=== PATIENT | female | born 1990 | race Caucasian/White ===

== ENCOUNTER 2018-05-15 09:02 | Inpatient (IN) ==
[2018-05-15] MEDS ORDERED: fentaNYL Citrate Inj 100 MCG/2 ML Ampul IV.PUSH PRN ×2 (09:50)
[2018-05-15] MEDS ORDERED: Sod Chloride 0.9% Inj 1,000 ML IV.CONT PRN (09:50)
[2018-05-15] MEDS ORDERED: Sodium Chlor 0.9% Inj 500 ML IV.SIG PRN (09:50)
[2018-05-15] MEDS ORDERED: Oxytocin 30 Units/500ml Premix 30 UNITS/500 ML BAG IV.SIG ONE (09:50)
[2018-05-15] MEDS ORDERED: Naloxone Inj 0.4 MG/ML Vial IV.PUSH PRN ×2 (09:50→20:59)
[2018-05-15] MEDS ORDERED: Penicillin G Potassium Inj 5,000,000 UNIT in Sodium Chloride 0.9% Inj 100 ML IV.SIG ONE (10:00)
[2018-05-15] MEDS ORDERED: Citric Acid/Sodium Citrate Liq 30 ML UDC PO SCH (10:00)
--- NOTE | 2018-05-15 10:24 | ED ---
History of Present Illness Chief Complaint: Fluid leakage History of Present Illness: Patient is a 27 year old at 39 weeks and 2 days who presents to OB triage for evaluation of fluid leakage. Around 2 a.m. she woke up feeling "wet." Her pants were drenched. She went to the bathroom and continued experiencing fluid leakage. The leakage continues at presentation. She denies vaginal bleeding. She is experiencing mild, irregular contractions. She endorses positive movement. G1: male, delivered at 36 weeks, 7 lbs 4 ounces; no complications G2: current ; GBS positive; no complications Weeks Gestation:: 39 Para: 1 : 2 Review of Systems All other systems reviewed negative except as stated in HPI PMFSH - History History Provided By: Patient - Medical / Surgical Hx Neg / Unobtainable Medical Problems Denied: Yes Surgical History: No Previous Surgery - Social History I have reviewed the patient's Social History: Yes - Tobacco History Smoking Status: Never smoker - Travel History Recent Travel in the [facility] Within the Last 8 Weeks: No Recent Travel Out of the Country Within the Last 8 Weeks: No Medications and Allergies Active Medications: Active Medications Citric Acid/Sodium Citrate (Sodium Citrate/Citric Acid Liq) 30 ml PO [facility] Stop: 05/19/18 09:59 Fentanyl Citrate (Fentanyl Inj) 50 mcg IV.PUSH Q1H PRN PRN Reason: Pain Scale 3 - 5 Fentanyl Citrate (Fentanyl Inj) 100 mcg IV.PUSH Q1H PRN PRN Reason: PAIN SCALE 6 TO 10 Lactated Ringer's (Lr 1000 Ml Inj) 1,000 mls @ 125 mls/hr IV.CONT .Q8H [facility] Lactated Ringer's (Lr 1000 Ml Inj) 1,000 mls @ 3,000 mls/hr IV.SIG UNSCH PRN PRN Reason: compromise or epidural Sodium Chloride (Ns Inj) 500 mls @ 1,000 mls/hr IV.SIG UNSCH PRN PRN Reason: SEE LABEL COMMENTS Sodium Chloride (Ns Inj) 1,000 mls @ 100 mls/hr IV.CONT .Q10H PRN PRN Reason: SEE LABEL COMMENTS Oxytocin (Pitocin 30 Units/Ns 500 Ml Premix) 30 units in 500 mls @ 999 mls/hr IV.SIG BOLUS ONE Stop: 05/15/18 10:20 Penicillin G Potassium 5,000, (000 unit/ Sodium Chloride) 100 mls @ 200 mls/hr IV.SIG ONCE ONE Stop: 05/15/18 10:19 Penicillin G Potassium 2,500, (000 unit/ Sodium Chloride) 100 mls @ 200 mls/hr IV.SIG Q4H EMELYN Lidocaine HCl (Xylocaine 1% Inj) 0.1 ml I-DERMAL PRN PRN PRN Reason: For IV start Stop: 05/18/18 09:49 Lidocaine HCl (Xylocaine 1% Inj) 10 ml INFILTRATN PRN PRN PRN Reason: For episiotomy repair Stop: 05/17/18 09:49 Mineral Oil (Muri-Lube Oil) 10 ml TOPICAL PRN PRN PRN Reason: PRN perineal massage Naloxone HCl (Narcan Inj) 0.1 mg IV.PUSH Q2M PRN PRN Reason: for opiate reversal Ondansetron HCl (Zofran Inj) 4 mg IV.PUSH Q6H PRN PRN Reason: NAUSEA OR VOMITING Allergies Allergy/AdvReac Type Severity Reaction Status Date / Time No Known Allergies Allergy Verified 05/15/18 09:18 Home Medications Medication Instructions Recorded Confirmed Type vit,[id number] 1 tab PO DAILY 05/15/18 05/15/18 History [PNV 29-1] Exam Vital signs: Vital Signs 05/15/18 09:22 Temperature 98.1 F Pulse Rate 101 H Respiratory Rate 18 Blood Pressure 127/80 Intake & Output 05/14/18 05/15/18 05/15/18 18:59 06:59 18:59 Weight 87.997 kg Narrative: GENERAL: Well-nourished, well-developed patient. SKIN: Warm and dry. HEAD: Normocephalic and atraumatic. EYES: No scleral icterus. No injection or drainage. ENT: No nasal drainage noted. Mucous membranes pink. Airway patent. NECK: Supple, trachea midline. No JVD. CARDIOVASCULAR: Regular rate and rhythm without murmurs, gallops, or rubs. RESPIRATORY: Breath sounds equal bilaterally. No accessory muscle use. BREASTS: Bilateral exam showed no masses , no retractions, no nipple discharge. ABDOMEN/GI: Abdomen soft, non-tender, bowel sounds present, no rebound, no guarding Gravid to 39 weeks size GENITOURINARY: External Genitalia: intact and normal in appearance Dilatation: 4 cm Effacement: 50% Station: -3 Membranes: ruptured Uterine Contractions: none FHT's: Category: 1 Baseline: 150 Reactive: + Variability: moderate Decels: none EXTREMITIES: No cyanosis or edema. BACK: Nontender without obvious deformity. No CVA tenderness. NEUROLOGICAL: Awake and alert. Motor and sensory grossly within normal limits. Five out of 5 muscle strength in all muscle groups. Normal speech. Results - Labs Group B Strep: Positive Assessment and Plan - Diagnosis (1) 39 weeks gestation of Code(s): Z3A.39 - 39 weeks gestation of Status: Acute (2) Spontaneous rupture of membranes Status: Acute - Plan Patient is a 27 year old at 39 weeks and 2 days who presents to OB triage for evaluation of fluid leakage. Amnisure positive. Admit to labor and delivery. Routine labor and delivery orders placed. Patient GBS positive; penicillin G started. Patient without contractions; consider Pitocin. dw OB hospitalist. Discharge Plan - Discharge Condition Condition: Stable - Physicians Team Primary Care Provider: Primary Polly Pruett Attending Provider: David Kohler - Rxs /Orders / Referrals /Forms Prescriptions: No Action vit,[id number] [PNV 29-1] 29 mg iron- 1 mg Tablet 1 tab PO DAILY Referrals: Primary Care Polly Gililam [Primary Care Provider] - See Instructions
--- NOTE | 2018-05-15 10:27 | P.HPOB ---
History of Present Illness Chief Complaint: Fluid leakage History of Present Illness: Patient is a 27 year old at 39 weeks and 2 days who presents to OB triage for evaluation of fluid leakage. Around 2 a.m. she woke up feeling "wet." Her pants were drenched. She went to the bathroom and continued experiencing fluid leakage. The leakage continues at presentation. She denies vaginal bleeding. She is experiencing mild, irregular contractions. She endorses positive movement. G1: male, delivered at 36 weeks, 7 lbs 4 ounces; no complications G2: current ; GBS positive; no complications Weeks Gestation:: 39 Para: 1 : 2 Review of Systems All other systems reviewed negative except as stated in HPI PMFSH - History History Provided By: Patient - Medical / Surgical Hx Neg / Unobtainable Medical Problems Denied: Yes Surgical History: No Previous Surgery - Social History I have reviewed the patient's Social History: Yes - Tobacco History Smoking Status: Never smoker - Travel History Recent Travel in the [facility] Within the Last 8 Weeks: No Recent Travel Out of the Country Within the Last 8 Weeks: No Medications and Allergies Active Medications: Active Medications Citric Acid/Sodium Citrate (Sodium Citrate/Citric Acid Liq) 30 ml PO [facility] Stop: 05/19/18 09:59 Fentanyl Citrate (Fentanyl Inj) 50 mcg IV.PUSH Q1H PRN PRN Reason: Pain Scale 3 - 5 Fentanyl Citrate (Fentanyl Inj) 100 mcg IV.PUSH Q1H PRN PRN Reason: PAIN SCALE 6 TO 10 Lactated Ringer's (Lr 1000 Ml Inj) 1,000 mls @ 125 mls/hr IV.CONT .Q8H [facility] Lactated Ringer's (Lr 1000 Ml Inj) 1,000 mls @ 3,000 mls/hr IV.SIG UNSCH PRN PRN Reason: compromise or epidural Sodium Chloride (Ns Inj) 500 mls @ 1,000 mls/hr IV.SIG UNSCH PRN PRN Reason: SEE LABEL COMMENTS Sodium Chloride (Ns Inj) 1,000 mls @ 100 mls/hr IV.CONT .Q10H PRN PRN Reason: SEE LABEL COMMENTS Oxytocin (Pitocin 30 Units/Ns 500 Ml Premix) 30 units in 500 mls @ 999 mls/hr IV.SIG BOLUS ONE Stop: 05/15/18 10:20 Penicillin G Potassium 5,000, (000 unit/ Sodium Chloride) 100 mls @ 200 mls/hr IV.SIG ONCE ONE Stop: 05/15/18 10:19 Penicillin G Potassium 2,500, (000 unit/ Sodium Chloride) 100 mls @ 200 mls/hr IV.SIG Q4H EM[facility] Lidocaine HCl (Xylocaine 1% Inj) 0.1 ml I-DERMAL PRN PRN PRN Reason: For IV start Stop: 05/18/18 09:49 Lidocaine HCl (Xylocaine 1% Inj) 10 ml INFILTRATN PRN PRN PRN Reason: For episiotomy repair Stop: 05/17/18 09:49 Mineral Oil (Muri-Lube Oil) 10 ml TOPICAL PRN PRN PRN Reason: PRN perineal massage Naloxone HCl (Narcan Inj) 0.1 mg IV.PUSH Q2M PRN PRN Reason: for opiate reversal Ondansetron HCl (Zofran Inj) 4 mg IV.PUSH Q6H PRN PRN Reason: NAUSEA OR VOMITING Allergies Allergy/AdvReac Type Severity Reaction Status Date / Time No Known Allergies Allergy Verified 05/15/18 09:18 Home Medications Medication Instructions Recorded Confirmed Type vit,[id number] 1 tab PO DAILY 05/15/18 05/15/18 History [PNV 29-1] Exam Vital signs: Vital Signs 05/15/18 09:22 Temperature 98.1 F Pulse Rate 101 H Respiratory Rate 18 Blood Pressure 127/80 Intake & Output 05/14/18 05/15/18 05/15/18 18:59 06:59 18:59 Weight 87.997 kg Narrative: GENERAL: Well-nourished, well-developed patient. SKIN: Warm and dry. HEAD: Normocephalic and atraumatic. EYES: No scleral icterus. No injection or drainage. ENT: No nasal drainage noted. Mucous membranes pink. Airway patent. NECK: Supple, trachea midline. No JVD. CARDIOVASCULAR: Regular rate and rhythm without murmurs, gallops, or rubs. RESPIRATORY: Breath sounds equal bilaterally. No accessory muscle use. BREASTS: Bilateral exam showed no masses , no retractions, no nipple discharge. ABDOMEN/GI: Abdomen soft, non-tender, bowel sounds present, no rebound, no guarding Gravid to 39 weeks size GENITOURINARY: External Genitalia: intact and normal in appearance Dilatation: 4 cm Effacement: 50% Station: -3 Membranes: ruptured Uterine Contractions: none FHT's: Category: 1 Baseline: 150 Reactive: + Variability: moderate Decels: none EXTREMITIES: No cyanosis or edema. BACK: Nontender without obvious deformity. No CVA tenderness. NEUROLOGICAL: Awake and alert. Motor and sensory grossly within normal limits. Five out of 5 muscle strength in all muscle groups. Normal speech. Results - Labs Group B Strep: Positive Assessment and Plan - Diagnosis (1) 39 weeks gestation of Code(s): Z3A.39 - 39 weeks gestation of Status: Acute (2) Spontaneous rupture of membranes Status: Acute - Plan Patient is a 27 year old at 39 weeks and 2 days who presents to OB triage for evaluation of fluid leakage. Amnisure positive. Admit to labor and delivery. Routine labor and delivery orders placed. Patient GBS positive; penicillin G started. Patient without contractions; consider Pitocin. pam OB hospitalist.
--- NOTE | 2018-05-15 10:36 | P.PN ---
Subjective Interval history: OBHG Attending The patient was seen and examined. Discussed risks of , risks and indications for delivery. Discussed risks of delivery if indicated that include but are not limited to pain, infection, bleeding, injury to other organs like bladder/bowels/nerves/vessels, injury to the baby, need for a repeat operation, need for a hysterectomy, need for a blood transfusion, wound infection or breakdown, and other possible risks. Discussed goal of with benefits of that include an easier transition for the baby and easier recovery for her. All of her questions were answered. FHR reassuring with baseline 130s and category 1 tracing. Physical Exam Vital signs: Vital Signs 05/15/18 09:22 Temperature 98.1 F Pulse Rate 101 H Respiratory Rate 18 Blood Pressure 127/80 Intake & Output 05/14/18 05/15/18 05/15/18 18:59 06:59 18:59 Weight 87.997 kg Results - Labs CBC & Chem 7: 05/15/18 10:10
[2018-05-15 10:45] LABS: Baso # (Auto) 0.1 th/mm3 (0.0-0.2); Baso % (Auto) 0.6 % (0.0-2.0); Eos % (Auto) 0.5 % (0.0-4.0); Hematocrit 34.4 % (35.0-46.0); Hemoglobin 11.6 gm/dL (11.6-15.3); Lymph # (Auto) 1.4 th/mm3 (1.0-4.8); Lymph % (Auto) 14.8 % (9.0-44.0); Mean Corpuscular HGB Conc 33.6 % (32.0-36.0); Mean Corpuscular Hemoglobin 28.5 pg (27.0-34.0); Mean Corpuscular Volume 84.8 fL (80.0-100.0); Mono # (Auto) 0.4 th/mm3 (0.0-0.9); Mono % (Auto) 4.3 % (0.0-8.0); Neut # (Auto) 7.4 th/mm3 (1.8-7.7); Neut % (Auto) 79.8 % (16.0-70.0); Platelet Count 255 th/mm3 (150-450); Red Blood Count 4.06 mil/mm3 (4.00-5.30); Red Cell Distribution Width 14.9 % (11.6-17.2); White Blood Count 9.3 th/mm3 (4.0-11.0)
[2018-05-15 11:05] LABS: Bacteria,Urine Occasional /hpf; Bilirubin,Urine Negative (Negative); Clarity,Urine Clear (Clear); Color,Urine Yellow (Yellw/Straw); Glucose,Urine (UA) Negative (Negative); Leukocyte Esterase,Urine Small (Negative); Nitrite,Urine Negative (Negative); Specific Gravity,Urine 1.011 (1.002-1.035); Squamous Epithelial Cell,Urine 5 /hpf (0-5)
[2018-05-15 11:07] LABS: Amphetamine Urine With Conf Neg (Neg); Benzodiazepine Urine With Conf Neg (Neg); Cocaine Urine With Conf Neg (Neg); Opiates Urine With Conf Neg (Neg)
[2018-05-15 11:18] LABS: Cannabinoid Urine With Conf Pos (Neg)
[2018-05-15] MEDS ORDERED: Oxytocin 30 Units/500ml Premix 30 UNITS/500 ML BAG IV.SIG PRN (12:30)
[2018-05-15] MEDS: Penicillin G Potassium Inj 2,500,000 UNIT in Sodium Chlor 0.9% Inj 100 ML IV.SIG SCH ×2 (14:17→18:20)
--- NOTE | 2018-05-15 14:57 | P.OBLABOR ---
Subjective Interval history: Patient is a 27 year old at 39 weeks and 2 days admitted to labor and delivery following SROM (2 a.m.). Patient resting comfortably. GENERAL: Well-nourished, well-developed patient. SKIN: Warm and dry. ENT: No nasal drainage noted. Mucous membranes pink. Airway patent. ABDOMEN/GI: Abdomen soft, non-tender, bowel sounds present, no rebound, no guarding. Gravid to 39 weeks size. GENITOURINARY: External Genitalia: intact and normal in appearance. Dilatation: 4 cm Effacement: 50% Station: -3 Membranes: ruptured Uterine Contractions: q2-3min. FHT's: Category: 1 Baseline: 140 Reactive: + Variability: moderate Decels: none EXTREMITIES: No cyanosis or edema. BACK: Nontender without obvious deformity. No CVA tenderness. NEUROLOGICAL: Awake and alert. Motor and sensory grossly within normal limits. Five out of 5 muscle strength in all muscle groups. Normal speech. Continue routine labor and delivery care. Patient GBS positive - Penicillin G. Pitocin 08/04/29. Recheck in 1 hour, if no cervical change, consider IUPC placement. pam OB hospitalist. Objective Vital Signs: Vital Signs - 8 hr 05/15/18 09:22 05/15/18 10:39 05/15/18 10:40 Temperature 98.1 F Pulse Rate 101 H 90 Respiratory Rate 18 18 Blood Pressure 127/80 117/81 05/15/18 11:27 05/15/18 11:28 05/15/18 12:39 Temperature 98.7 F Pulse Rate 79 91 H Respiratory Rate 18 18 Blood Pressure 111/58 L 132/72 05/15/18 13:09 05/15/18 13:10 05/15/18 14:10 Temperature 98.4 F Pulse Rate 88 84 Respiratory Rate Blood Pressure 124/68 128/65 05/15/18 14:14 05/15/18 14:53 Temperature Pulse Rate 84 Respiratory Rate 18 18 Blood Pressure 119/71 Objective: Pelvic Exam: Cervix: [-] Dilatation: [-] Effacement: [-] Station: [-] Presentation: [-] Membranes: [intact or ruptured] Uterine Contractions: [-] FHT's: Category: [-] Baseline: [-] Reactive: [-] Variability: [-] Decels: [-] Assessment and Plan - Diagnosis (1) 39 weeks gestation of Code(s): Z3A.39 - 39 weeks gestation of Status: Acute (2) Spontaneous rupture of membranes Status: Acute - Plan Patient is a 27 year old at 39 weeks and 2 days who presents to OB triage for evaluation of fluid leakage. Amnisure positive. Admit to labor and delivery. Routine labor and delivery orders placed. Patient GBS positive; penicillin G started. Patient without contractions; consider Pitocin. pam OB hospitalist.
[2018-05-15] MEDS ORDERED: Lidocaine PF 1% Inj 5 ML Vial ONE (18:47)
[2018-05-15] MEDS ORDERED: Lidocaaine 1.5%/Epinephrine 1:200,000 PF Inj 5 ML Amp ONE (18:47)
[2018-05-15] MEDS ORDERED: fentaNYL 2MCG-Bupiv 0.125% Epi 150 ML EPIDURAL ONE (19:00)
--- NOTE | 2018-05-15 20:23 | P.PN ---
Subjective Interval history: Delivery Note The patient rapidly progressed from 4 to 8 cm dilation upon entering active labor and subsequently to completely dilated. The patient commenced spontaneous maternal expulsive efforts with appropriate descent with overall reassuring heart tones throughout. The head delivered atraumatically and spontaneously followed by atraumatic and spontaneous delivery of the anterior shoulder and remainder of . The was placed on the maternal abdomen and was vigorous. The cord was noted to be shorter than expected. The cord was doubly clamped and cut after a >45 second delay. Cord blood was obtained for the nursery and the placenta delivered spontaneously. The placenta appeared intact. No lacerations were noted. EBL 200 cc. Apgars 9/9. weight 4335 g, 9#9oz. Mother and are both doing well. Physical Exam Vital signs: Vital Signs 05/15/18 09:22 05/15/18 10:39 05/15/18 10:40 Temperature 98.1 F Pulse Rate 101 H 90 Respiratory Rate 18 18 Blood Pressure 127/80 117/81 05/15/18 11:27 05/15/18 11:28 05/15/18 12:39 Temperature 98.7 F Pulse Rate 79 91 H Respiratory Rate 18 18 Blood Pressure 111/58 L 132/72 05/15/18 13:09 05/15/18 13:10 05/15/18 14:10 Temperature 98.4 F Pulse Rate 88 84 Respiratory Rate Blood Pressure 124/68 128/65 05/15/18 14:14 05/15/18 14:53 05/15/18 15:00 Temperature 98.0 F Pulse Rate 84 Respiratory Rate 18 18 Blood Pressure 119/71 05/15/18 15:56 05/15/18 15:57 05/15/18 16:46 Temperature Pulse Rate 92 H 89 Respiratory Rate 18 18 Blood Pressure 124/72 113/68 05/15/18 16:48 05/15/18 17:08 05/15/18 17:42 Temperature 98.1 F Pulse Rate 83 86 Respiratory Rate 18 Blood Pressure 128/68 111/66 05/15/18 18:19 05/15/18 18:21 05/15/18 18:46 Temperature 98.0 F Pulse Rate 81 Respiratory Rate 18 Blood Pressure 103/60 05/15/18 18:55 05/15/18 19:06 05/15/18 19:10 Temperature Pulse Rate 103 H 101 H 90 Respiratory Rate 18 Blood Pressure 122/69 116/74 103/51 L 05/15/18 19:17 05/15/18 19:26 05/15/18 19:36 Temperature Pulse Rate 93 H 99 H 84 Respiratory Rate 18 18 Blood Pressure 124/71 119/103 H 125/47 L 05/15/18 19:40 05/15/18 19:50 05/15/18 19:59 Temperature Pulse Rate 94 H 89 Respiratory Rate 18 Blood Pressure 122/67 Intake & Output 05/15/18 05/15/18 05/16/18 06:59 18:59 06:59 Intake Total 100 / 100 Balance 100 / 100 Weight 87.997 kg Intake: IV 100 / 100 Pfizerpen-G Inj 2,500,000 UNIT 100 / 100 In NS Inj 100 ML @ 200 mls/hr IV.SIG Q4H [facility] Rx#:[id number] Results - Labs CBC & Chem 7: 05/15/18 10:10 Laboratory Results - last 24 hr 05/15/18 05/15/18 05/15/18 09:30 09:30 10:10 WBC 9.3 RBC 4.06 Hgb 11.6 Hct 34.4 L MCV 84.8 MCH 28.5 MCHC 33.6 RDW 14.9 Plt Count 255 MPV 7.0 Neut % (Auto) 79.8 H Lymph % (Auto) 14.8 Sanders % (Auto) 4.3 Eos % (Auto) 0.5 Baso % (Auto) 0.6 Neut # (Auto) 7.4 Lymph # (Auto) 1.4 Sanders # (Auto) 0.4 Eos # (Auto) 0.0 Baso # (Auto) 0.1 WBC Differential . Differential Comment Auto diff final Urine Color Yellow Urine Clarity Clear Urine pH 7.0 Ur Specific Grace 1.011 Urine Protein Negative Urine Glucose (UA) Negative Urine Ketones Negative Urine Occult Blood Negative Urine Nitrate Negative Urine Bilirubin Negative Urine Urobilinogen Less than 2 Ur Leukocyte Esterase Small H Urine RBC 1 Urine WBC 17 H Ur Squamous Epith Cells 5 Urine Bacteria Occasional H Micro UA Comment Culture indicated Ur Microscopic Review Not Reportable Urine Culture Comments Culture indicated Urine Opiates Screen Neg Ur Barbiturates Screen Neg Ur Amphetamine Screen Neg U Benzodiazepines Scrn Neg Urine Cocaine Screen Neg U Cannabinoids Screen Pos H Blood Type Blood Type Recheck 05/15/18 10:10 WBC RBC Hgb Hct MCV MCH MCHC RDW Plt Count MPV Neut % (Auto) Lymph % (Auto) Sanders % (Auto) Eos % (Auto) Baso % (Auto) Neut # (Auto) Lymph # (Auto) Sanders # (Auto) Eos # (Auto) Baso # (Auto) WBC Differential Differential Comment Urine Color Urine Clarity Urine pH Ur Specific Grace Urine Protein Urine Glucose (UA) Urine Ketones Urine Occult Blood Urine Nitrate Urine Bilirubin Urine Urobilinogen Ur Leukocyte Esterase Urine RBC Urine WBC Ur Squamous Epith Cells Urine Bacteria Micro UA Comment Ur Microscopic Review Urine Culture Comments Urine Opiates Screen Ur Barbiturates Screen Ur Amphetamine Screen U Benzodiazepines Scrn Urine Cocaine Screen U Cannabinoids Screen Blood Type O Positive Blood Type Recheck Required
[2018-05-15] MEDS ORDERED: Benzocaine 20% Top Spray 60 ML Can TOPICAL PRN (20:59)
[2018-05-15] MEDS ORDERED: Witch Hazel 50%/Glyderin 12.5% 40 Pad Jar RECTAL PRN (20:59)
[2018-05-15] MEDS ORDERED: Oxytocin 30 Units/500ml Premix 30 UNITS/500 ML BAG IV.CONT PRN (20:59)
[2018-05-15] MEDS ORDERED: Bisacodyl 10 MG Supp RECTAL PRN (20:59)
[2018-05-15] MEDS ORDERED: Zolpidem Tartrate 5 MG Tablet PO PRN (20:59)
[2018-05-15] MEDS ORDERED: Acetaminophen 325 MG Tablet PO PRN (20:59)
--- NOTE | 2018-05-15 21:01 | P.OBDELI ---
Weeks Gestation: 39 Anesthesia: Epidural Episiotomy: none Vaginal Delivery: Normal Presentation: Occiput anterior Nuchal Cord: None, Other (Short cord) Delayed Cord Clamping (45 sec): Yes Placenta: Spontaneous delivery Laceration: None Estimated blood loss (mL): 200 Infant: Male (Apgars 9/9, Weight 4335g, 9#9 oz.)
[2018-05-16] MEDS: Senna/Docusate Sodium 8.6/50 MG Tablet PO SCH ×2 (03:47→08:40)
--- NOTE | 2018-05-16 08:32 | P.PNOB ---
Subjective Post day: 1 Interval history: day # 1. AFVSS overnight. Patient complains of some abdominal cramping and soreness, but has not gotten any pain medication yet. Discussed with the patient that Tylenol and Motrin available to her PRN for pain. Decreased lochia. Denies dysuria. No breast tenderness. She is feeding the baby via breast. Appetite good. No nausea or vomiting. Passing flatus. No bowel movements. Ambulating well. Denies calf pain, shortness of breath, or cough. Otherwise, she is doing well this morning and has no other complaints. Objective Vital Signs/I&O: Vital Signs 05/15/18 09:22 05/15/18 10:39 05/15/18 10:40 Temperature 98.1 F Pulse Rate 101 H 90 Respiratory Rate 18 18 Blood Pressure 127/80 117/81 05/15/18 11:27 05/15/18 11:28 05/15/18 12:39 Temperature 98.7 F Pulse Rate 79 91 H Respiratory Rate 18 18 Blood Pressure 111/58 L 132/72 05/15/18 13:09 05/15/18 13:10 05/15/18 14:10 Temperature 98.4 F Pulse Rate 88 84 Respiratory Rate Blood Pressure 124/68 128/65 05/15/18 14:14 05/15/18 14:53 05/15/18 15:00 Temperature 98.0 F Pulse Rate 84 Respiratory Rate 18 18 Blood Pressure 119/71 05/15/18 15:56 05/15/18 15:57 05/15/18 16:46 Temperature Pulse Rate 92 H 89 Respiratory Rate 18 18 Blood Pressure 124/72 113/68 05/15/18 16:48 05/15/18 17:08 05/15/18 17:42 Temperature 98.1 F Pulse Rate 83 86 Respiratory Rate 18 Blood Pressure 128/68 111/66 05/15/18 18:19 05/15/18 18:21 05/15/18 18:46 Temperature 98.0 F Pulse Rate 81 Respiratory Rate 18 Blood Pressure 103/60 05/15/18 18:55 05/15/18 19:06 05/15/18 19:10 Temperature Pulse Rate 103 H 101 H 90 Respiratory Rate 18 Blood Pressure 122/69 116/74 103/51 L 05/15/18 19:17 05/15/18 19:26 05/15/18 19:36 Temperature Pulse Rate 93 H 99 H 84 Respiratory Rate 18 18 Blood Pressure 124/71 119/103 H 125/47 L 05/15/18 19:40 05/15/18 19:50 05/15/18 19:59 Temperature Pulse Rate 94 H 89 Respiratory Rate 18 Blood Pressure 122/67 05/15/18 20:10 05/15/18 20:20 05/15/18 20:21 Temperature 98.2 F Pulse Rate 76 Respiratory Rate 18 18 Blood Pressure 93/62 L 05/15/18 20:45 05/15/18 20:55 05/15/18 20:58 Temperature 98.3 F Pulse Rate 80 Respiratory Rate 18 18 18 Blood Pressure 121/72 05/15/18 20:59 05/15/18 21:15 05/15/18 22:00 Temperature 98.5 F Pulse Rate 78 76 85 Respiratory Rate 18 18 Blood Pressure 102/49 L 114/60 110/61 05/15/18 23:00 05/16/18 08:00 Temperature 98.0 F 98.6 F Pulse Rate 79 89 Respiratory Rate 18 20 Blood Pressure 116/74 111/69 Intake & Output 05/15/18 05/16/18 05/16/18 18:59 06:59 18:59 Intake Total 100 / 100 Balance 100 / 100 Weight 87.997 kg Intake: IV 100 / 100 Pfizerpen-G Inj 2,500,000 UNIT 100 / 100 In NS Inj 100 ML @ 200 mls/hr IV.SIG Q4H [facility] Rx#:[id number] Result Diagrams: 05/15/18 10:10 Objective Remarks: GENERAL: Well-nourished, well-developed patient. CARDIOVASCULAR: Regular rate and rhythm without murmurs, gallops, or rubs. RESPIRATORY: Breath sounds equal bilaterally. No accessory muscle use. ABDOMEN/GI: Abdomen soft, non-tender. Fundus: Firm, non-tender at umbilicus. GENITOURINARY: Light to moderate bleeding. EXTREMITIES: No cyanosis or edema, non-tender, without signs of DVT. Medications and IVs: Active Medications Acetaminophen (Tylenol) 650 mg PO Q4H PRN PRN Reason: PAIN SCALE 1 TO 2 Al Hydroxide/Mg Hydroxide (Milk Of Magnesia Liq) 30 ml PO Q12H PRN PRN Reason: Mild Constipation Benzocaine (Americaine 20% [place]) 1 spray TOPICAL Q4H PRN PRN Reason: For Perineum Discomfort Last Admin: 05/16/18 03:48 Dose: 1 spray Bisacodyl (Dulcolax Supp) 10 mg RECTAL DAILY PRN PRN Reason: SEVERE CONSITIPATION Diphtheria/Pertussis/Tetanus Vacc (Boostrix Vaccine Inj) 0.5 ml IM .ONCE ONE Stop: 05/16/18 16:01 Oxytocin (Pitocin 30 Units/Ns 500 Ml Premix) 30 units in 500 mls @ 100 mls/hr IV.CONT UNSCH PRN PRN Reason: Heavy bleeding Ibuprofen (Motrin) 800 mg PO Q8H PRN PRN Reason: For Cramping Lactulose (Lactulose Liq) 30 ml PO DAILY PRN PRN Reason: SEVERE CONSITIPATION Measles/Mumps/Rubella Vaccine Live (M-M-R Ii Vaccine Inj) 0.5 ml SQ .ONCE ONE Stop: 05/16/18 16:01 Naloxone HCl (Narcan Inj) 0.1 mg IV.PUSH Q2M PRN PRN Reason: for opiate reversal Ondansetron HCl (Zofran Odt) 4 mg PO Q6H PRN PRN Reason: NAUSEA OR VOMITING Oxycodone/Acetaminophen (Percocet 5/325 Mg) 1 tab PO Q4H PRN PRN Reason: PAIN SCALE 3 TO 5 Oxycodone/Acetaminophen (Percocet 5/325 Mg) 2 tab PO Q4H PRN PRN Reason: PAIN SCALE 6 TO 10 Vit/Calcium/Iron/Folic Ac (Stuartnatal Plus 3) 1 tab PO DAILY [facility] Senna/Docusate Sodium (Veronica-Colace) 1 tab PO BID [facility] Last Admin: 05/16/18 03:47 Dose: Not Given Sennosides (Senokot) 17.2 mg PO Q12H PRN PRN Reason: Moderate Constipation Sodium Chloride (Ns Flush) 2 ml IV.FLUSH BID [facility] Last Admin: 05/16/18 03:47 Dose: Not Given Sodium Chloride (Ns Flush) 2 ml IV.FLUSH PRN PRN PRN Reason: FLUSH AFTER USING IV ACCESS Witch Camille/Glycerin (Tucks Pads) 1 applicatio RECTAL QID PRN PRN Reason: HEMORRHOIDS Last Admin: 05/16/18 03:48 Dose: 1 applicatio Zolpidem Tartrate (Ambien) 5 mg PO HS PRN PRN Reason: SLEEP Assessment and Plan - Diagnosis (1) 39 weeks gestation of Code(s): Z3A.39 - 39 weeks gestation of Status: Acute (2) Spontaneous rupture of membranes Status: Acute - Plan 27 y/o who is PPD# 1 s/p . -Continue routine care. -Tylenol and Motrin as needed for pain. -Encouraged OOB. Advised pelvic rest for 6 wks. -Will need a f/u appt. within 6 wks. -Contraception: she would like to consider her options further. -Anticipate discharge tomorrow sdw Dr. Pinzon and OB attending, Dr. Ramirez
[2018-05-16] MEDS: Prenatal Vit/Ca/Iron/Folic Acid Tablet PO SCH (08:40)
[2018-05-16] MEDS ORDERED: Measles/Mumps/Rubella Vaccine Inj 0.5 ML Vial SQ ONE (16:00)
[2018-05-16] MEDS ORDERED: Diphtheria/Tetanus/Pertussis Vaccine Inj 0.5 ML Syringe IM ONE (16:00)
[2018-05-16 20:11] VITALS: TEMP 97.8
[2018-05-17] MEDS: Senna/Docusate Sodium 8.6/50 MG Tablet PO SCH (08:02)
[2018-05-17] MEDS: Prenatal Vit/Ca/Iron/Folic Acid Tablet PO SCH (08:03)
[2018-05-17 08:24] VITALS: BP 108/70; PULSE 88; RESP 20
--- NOTE | 2018-05-17 09:05 | P.PNOB ---
Subjective Post day: 2 Interval history: day # 2. AFVSS overnight. Pain well-controlled. Decreased lochia. Denies dysuria. No breast tenderness. She is feeding the baby via breast and bottle. Appetite good. No nausea or vomiting. Passing flatus. No bowel movements. Ambulating well. Denies calf pain, shortness of breath, or cough. Otherwise, she is doing well this morning and has no other complaints. Objective Vital Signs/I&O: Vital Signs 05/16/18 20:00 05/17/18 08:00 Temperature 97.8 F 97.8 F Pulse Rate 86 88 Respiratory Rate 18 20 Blood Pressure 116/70 108/70 Result Diagrams: 05/15/18 10:10 Objective Remarks: GENERAL: Well-nourished, well-developed patient. CARDIOVASCULAR: Regular rate and rhythm without murmurs, gallops, or rubs. RESPIRATORY: Breath sounds equal bilaterally. No accessory muscle use. ABDOMEN/GI: Abdomen soft, non-tender. Fundus: Firm, non-tender at umbilicus. GENITOURINARY: Light to moderate bleeding. EXTREMITIES: No cyanosis or edema, non-tender, without signs of DVT. Medications and IVs: Active Medications Acetaminophen (Tylenol) 650 mg PO Q4H PRN PRN Reason: PAIN SCALE 1 TO 2 Al Hydroxide/Mg Hydroxide (Milk Of Magnesia Liq) 30 ml PO Q12H PRN PRN Reason: Mild Constipation Benzocaine (Americaine 20% Top [place]) 1 spray TOPICAL Q4H PRN PRN Reason: For Perineum Discomfort Last Admin: 05/16/18 03:48 Dose: 1 spray Bisacodyl (Dulcolax Supp) 10 mg RECTAL DAILY PRN PRN Reason: SEVERE CONSITIPATION Oxytocin (Pitocin 30 Units/Ns 500 Ml Premix) 30 units in 500 mls @ 100 mls/hr IV.CONT UNSCH PRN PRN Reason: Heavy bleeding Ibuprofen (Motrin) 800 mg PO Q8H PRN PRN Reason: For Cramping Last Admin: 05/17/18 07:53 Dose: 800 mg Lactulose (Lactulose Liq) 30 ml PO DAILY PRN PRN Reason: SEVERE CONSITIPATION Naloxone HCl (Narcan Inj) 0.1 mg IV.PUSH Q2M PRN PRN Reason: for opiate reversal Ondansetron HCl (Zofran Odt) 4 mg PO Q6H PRN PRN Reason: NAUSEA OR VOMITING Oxycodone/Acetaminophen (Percocet 5/325 Mg) 1 tab PO Q4H PRN PRN Reason: PAIN SCALE 3 TO 5 Oxycodone/Acetaminophen (Percocet 5/325 Mg) 2 tab PO Q4H PRN PRN Reason: PAIN SCALE 6 TO 10 Vit/Calcium/Iron/Folic Ac (Stuartnatal Plus 3) 1 tab PO DAILY [facility] Last Admin: 05/17/18 08:03 Dose: 1 tab Senna/Docusate Sodium (Veronica-Colace) 1 tab PO BID [facility] Last Admin: 05/17/18 08:02 Dose: 1 tab Sennosides (Senokot) 17.2 mg PO Q12H PRN PRN Reason: Moderate Constipation Sodium Chloride (Ns Flush) 2 ml IV.FLUSH BID [facility] Last Admin: 05/17/18 08:06 Dose: Not Given Sodium Chloride (Ns Flush) 2 ml IV.FLUSH PRN PRN PRN Reason: FLUSH AFTER USING IV ACCESS Witch Camille/Glycerin (Tucks Pads) 1 applicatio RECTAL QID PRN PRN Reason: HEMORRHOIDS Last Admin: 05/16/18 03:48 Dose: 1 applicatio Zolpidem Tartrate (Ambien) 5 mg PO HS PRN PRN Reason: SLEEP Assessment and Plan - Diagnosis (1) 39 weeks gestation of Code(s): Z3A.39 - 39 weeks gestation of Status: Acute (2) Spontaneous rupture of membranes Status: Acute - Plan 27 y/o who is PPD# 2 s/p . -Continue routine care. -Tylenol and Motrin as needed for pain. -Encouraged OOB. Advised pelvic rest for 6 wks. -Will need a f/u appt. within 6 wks. -Contraception: she would like to consider her options further. -Plan for discharge today. sdw Dr. Pinzon and OB attending, Dr. Kohler
== END 2018-05-17 18:21 | disposition home or self-care (01) ==
LOC: HOBED 09:02 → H2E 10:00 → H1EA 22:36
PROVIDERS: ADMIT Obstetrics & Gynecology Maternal & Fetal Medicine; ATTEND Obstetrics & Gynecology Maternal & Fetal Medicine